=== PATIENT | male | born 1940 | race Caucasian/White ===

== ENCOUNTER → 2016-05-25 | Outpatient (CLI) | payer MEDICARE, OTHER ==
[2016-05-25 14:44] LABS: CALCIUM LEVEL 8.9 MG/DL (8.8-10.2); CREATININE FOR GFR 2.04 MG/DL (0.70-1.30); GLOMERULAR FILTRATION RATE 34.1 (>42); POTASSIUM SERUM 4.7 MEQ/L (3.5-5.1)
--- NOTE | 2016-05-25 22:24 | ECGEPIP ---
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
== END ==
LOC: M LAB 13:51
PROVIDERS: ATTEND Ophthalmology
DX: I10 Essential (primary) hypertension (principal)

== ENCOUNTER → 2016-10-02 | Outpatient (REF) | payer MEDICARE, OTHER ==
[~2016-10-02] MED LIST: ASPI81TA85 PO; DITR1TAB PO; ENAL5TAB PO; FENO54TA2 PO; FISH500C PO; LISI10TA4 PO
[2016-10-03 14:04] LABS: PERCENT SATURATION 11.1 % (19.7-50.0)
== END ==
LOC: M LAB REF 13:14
PROVIDERS: ATTEND Internal Medicine Nephrology
DX: N18.3 Chronic kidney disease, stage 3 (moderate) (principal); D63.1 Anemia in chronic kidney disease

== ENCOUNTER → 2017-04-12 | Outpatient (REF) | payer MEDICARE, OTHER ==
[2017-04-12 14:21] LABS: FERRITIN 27 NG/ML (26-388); IRON (FE) 53 UG/DL (65-175); PERCENT SATURATION 11.9 % (19.7-50.0); TOTAL IRON BINDING CAPACITY 447 UG/DL (250-450)
== END ==
LOC: M LAB REF 13:42
DX: N18.9 Chronic kidney disease, unspecified (principal); D50.9 Iron deficiency anemia, unspecified; D63.1 Anemia in chronic kidney disease
CPT/HCPCS: 83550

== ENCOUNTER → 2019-02-12 | Outpatient (REF) | payer MEDICARE, OTHER ==
[2019-02-13 14:46] LABS: PERCENT SATURATION 14.1 % (19.7-50.0)
== END ==
LOC: M LAB REF 13:18
PROVIDERS: ATTEND Internal Medicine Nephrology
DX: D50.9 Iron deficiency anemia, unspecified (principal); D63.1 Anemia in chronic kidney disease

== ENCOUNTER → 2019-04-22 | Outpatient (REF) | payer MEDICARE, OTHER ==
[2019-04-22 19:46] LABS: PERCENT SATURATION 17.2 % (19.7-50.0)
== END ==
LOC: M LAB REF 18:36
PROVIDERS: ATTEND Nurse Practitioner Family
DX: D50.9 Iron deficiency anemia, unspecified (principal)